=== PATIENT | female | born 1975 | race Two or more races ===

== ENCOUNTER 2024-10-31 16:25 | Inpatient (IN) | payer BC, MEDICAID ==
[~2024-10-31] VITALS: Ht 162.6 cm; Wt 82.2 kg
[2024-10-31 16:44] VITALS: PULSE 78; RESP 14; O2SAT 96
--- NOTE | 2024-10-31 16:58 | ED.PDOC ---
GI ASSESSMENT HPI Comments This is a 49-year-old lady with past medical history of diabetes, hypertension and dyslipidemia came to the hospital due to abdominal pain since 5 days. Pain Is localized at left lower abdominal pain, nonradiating, 9/10 in intensity, which worsened with taking food. She also reports of nausea. She denies fever, vomiting, chest pain, shortness of breaths or any bladder and bowel habit changes. Home meds: Metformin, losartan atorvastatin Chief Complaint: Abdominal Pain Time Seen by MD: 16:41 Reviewed Notes: Nurses Notes Allergies: Coded Allergies: NO KNOWN ALLERGIES (Unverified , 10/31/24) Information Source: Patient Mode of Arrival: Ambulatory Past Medical History Past Medical History (Other): Diabetes hypertension dyslipidemia Constitutional: denies: chills, diaphoresis, fatigue, fever, malaise, sweats, weakness, others EENTM: denies: blurred vision, double vision, ear bleeding, ear discharge, ear drainage, ear pain, ear ringing, eye pain, eye redness, hearing loss, mouth pain, mouth swelling, nasal discharge, nose bleeding, nose congestion, nose pain, photophobia, tearing, throat pain, throat swelling, voice changes, others Respiratory: denies: cough, hemoptysis, orthopnea, SOB at rest, shortness of breath, SOB with excertion, stridor, wheezing, others Cardiovascular: denies: chest pain, dizzy spells, diaphoresis, Dyspnea on exertion, edema, irregular heart beat, left arm pain, lightheadedness, palpitations, PND, syncope, others Gastrointestinal: reports: abdominal pain, nausea; denies: abdomen distended, blood streaked bowels, constipated, diarrhea, dysphagia, difficulty swallowing, hematemesis, melena, poor appetite, poor fluid intake, rectal bleeding, rectal pain, vomiting, others Genitourinary: denies: abnormal vagina bleeding, burning, dyspareunia, dysuria, flank pain, frequency, hematuria, incontinence, pain, , vagina discharge, urgency, others Neurological: denies: dizziness, fainting, headache, left sided numbness, left sided weakness, numbness, paresthesia, pre-existing deficit, right sided numbness, right sided weakness, seizure, speech problems, tingling, tremors, wea kness, others Musculoskeletal: denies: back pain, gout, joint pain, joint swelling, muscle pain, muscle stiffness, neck pain, others Integumetry: denies: bruises, change in color, change in hair/nails, dryness, l aceration, lesions, lumps, rash, wounds, others Allergic/Immunocompromised: denies: Difficulty Healing, Frequent Infections, Hives, Itching, others Hematologic/Lymphatic: denies: anemia, blood clots, easy bleeding, easy bruising, swollen glands, others Endocrine: denies: excessive hunger, excessive sweating, excessive thirst, excessive urination, flushing, intolerance to cold, intolerance to heat, unexplained weight gain, unexplained weight loss, others Psychiatric: denies: anxiety, bipolar disorder, depression, hopeless, panic disorder, schizophrenia, sleepless, suicidal, others Physical Exam General Appearance: No Apparent Distress, Normal HEENT: Normal ENT Inspection, Pharynx Normal, TMs Normal Neck: Full Range of Motion, Non-Tender, Normal, Normal Inspection Respiratory: Chest Non-Tender, Lungs Clear, No Accessory Muscle Use, No Respiratory Distress, Normal Breath Sounds Cardiovascular: No Edema, No JVD, No Murmur, No Gallop, Normal Peripheral Pulses, Regular Rate/Rhythm Breast Exam: Deferred Gastrointestinal: No Organomegaly, Non Tender, No Pulsatile Mass, Normal Bowel Sounds, RLQ, Tenderness Genitalia: Deferred Pelvic: Deferred Rectal: Deferred Extremities: No calf tenderness, Normal capillary refill, Normal inspection, Normal range of motion, Non-tender, No pedal edema Musculoskeletal : Apperance: Normal Neurologic: Alert, 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 Was a procedure done?: No GI differential Dx Differential Diagnosis: Diverticular disease, Gastroenteritis X-Ray, Labs, Meds, VS Vital Signs Date Time Temp Pulse Resp B/P (MAP) Pulse Ox O2 Delivery O2 Flow Rate FiO2 10/31/24 18:18 73 17 192/107 10/31/24 17:11 71 10/31/24 17:11 210/111 10/31/24 16:29 98.3 76 22 211/112 96 98.3 Lab Test 10/31/24 18:00 10/31/24 17:20 10/31/24 17:17 Range/Units Urine Color Colorless Yellow Urine Clarity Clear Clear Urine pH 6.5 5.0-9.0 Urine Specific [place] 1.003 1.001-1.035 Urine Protein Negative Negative Urine Ketones Negative Negative Urine Blood Negative Negative /uL Urine Nitrite Negative Negative Urine Bilirubin Negative Negative Urine Urobilinogen Normal Negative mg/dL Urine Leukocyte Esterase Negative Negative /uL Urine RBC None seen 0 - 4 /hpf Urine Microscopic WBC < 1 0-5 /HPF Urine Squamous Epithelial Cells Few <5 /hpf Urine Bacteria None seen None Seen /hpf Urine Glucose Normal Normal mg/dL Urine Opiates Screen Pending Urine Fentanyl Screen Pending Urine Barbiturates Screen Pending Urine Phencyclidine Screen Pending Urine Amphetamines Screen Pending Urine Benzodiazepines Screen Pending Urine Cocaine Screen Pending Urine Cannabinoids Screen Pending Sodium Level 141 136-145 mmol/L Potassium Level 3.2 L 3.5-5.1 mmol/L Chloride Level 104 98-107 mmol/L Carbon Dioxide Level 25 20-31 mmol/L Anion Gap 12 5-15 Blood Urea Nitrogen 11 9-23 mg/dL Creatinine 0.67 0.550-1.02 mg/dL Glomerular Filtration Rate Calc 106 >90 mL/min BUN/Creatinine Ratio 16.4 10.0-20.0 Serum Glucose 120 H 74-106 mg/dL Calcium Level 9.7 8.7-10.4 mg/dL Magnesium Level 1.8 1.6-2.6 mg/dL Total Bilirubin 1.1 H 0.2-1.0 mg/dL Aspartate Amino Transferase (AST) 24 13-40 U/L Alanine Aminotransferase (ALT) 27 7-40 U/L Alkaline Phosphatase 86 46-116 U/L Total Protein 7.2 5.7-8.2 g/dL Albumin 4.3 3.2-4.8 g/dL Plasma/Serum Blood Alcohol < 3.0 <10 mg/dL White Blood Count 8.0 4.4-10.8 10^3/uL Red Blood Count 4.74 4.0-5.20 10^6/uL Hemoglobin 14.0 12.2-16.2 g/dL Hematocrit 39.6 36.0-46.0 % Mean Corpuscular Volume 83.5 80.0-100.0 fL Mean Corpuscular Hemoglobin 29.5 28.0-32.0 pg Mean Corpuscular Hemoglobin Concent 35.3 32.0-36.0 g/dL Red Cell Distribution Width 13.2 11.8-14.3 % Platelet Count 351 140-450 10^3/uL Mean Platelet Volume 7.9 6.9-10.8 fL Neutrophils (%) (Auto) 67.7 37.0-80.0 % Lymphocytes (%) (Auto) 22.5 10.0-50.0 % Monocytes (%) (Auto) 6.6 0.0-12.0 % Eosinophils (%) (Auto) 2.6 0.0-7.0 % Basophils (%) (Auto) 0.6 0.0-2.0 % Neutrophils # (Auto) 5.4 1.6-8.6 10 ^3/uL Lymphocytes # (Auto) 1.8 0.4-5.4 10 ^3/uL Monocytes # (Auto) 0.5 0-1.3 10 ^3/uL Eosinophils # (Auto) 0.2 0-0.8 10 ^3/uL Basophils # (Auto) 0 0-0.2 10 ^3/uL Nucleated Red Blood Cells 0.1 % Current Medications Medications (Trade) Dose Ordered Sig/Scott Route Start Time Stop Time Status Last Admin Ketorolac Tromethamine (Toradol Injection) 30 mg ONCE ONCE IV 10/31/24 17:00 10/31/24 17:01 [place] 10/31/24 17:12 Pantoprazole Sodium (Protonix) 40 mg ONCE ONCE IV 10/31/24 17:00 10/31/24 17:01 [place] 10/31/24 17:11 Ondansetron HCl (Zofran) 4 mg ONCE ONCE IV 10/31/24 17:00 10/31/24 17:01 [place] 10/31/24 17:11 Sodium Chloride 1,000 ml @ 1,000 mls/hr Q1H ONCE IV 10/31/24 17:00 10/31/24 17:59 [place] 10/31/24 17:10 Amlodipine Besylate (Norvasc Tablet) 10 mg ONCE ONCE PO 10/31/24 17:00 10/31/24 17:01 [place] 10/31/24 17:11 Acetaminophen (Tylenol Tablet) 650 mg ONCE ONCE PO 10/31/24 17:00 10/31/24 17:01 DC 10/31/24 17:12 Morphine Sulfate 4 mg ONCE ONCE IV 10/31/24 18:15 10/31/24 18:16 DC 10/31/24 18:18 Ondansetron HCl (Zofran) 4 mg ONCE ONCE IV 10/31/24 18:15 10/31/24 18:16 DC 10/31/24 18:18 Time of 1ST Reevaluation: 18:55 Reevaluation 1ST: Unchanged Patient Education/Counseling: Diagnosis, Treatment, Prognosis, Need For Follow Up Family Education/Counseling: No Family Present Comments Patient came to the hospital due to abdominal pain. Patient's blood pressure was raised at 220/[address] scan performed, showed moderate amount of stool, with diverticulosis. Patient was given morphine and ketorolac. CBC and CMP checked, within normal limits. Patient was given amlodipine and lisinopril. On subsequent checkup, patient was still feeling pain and tenderness. Blood pressure was on subsequent check up was 190 Patient will be admitted for inpatient workup and management for unknown abdominal pain and possible abdominal MRI/ultrasound. SEPSIS Sepsis Screen Date sepsis recognized/suspect: Oct 31, 2024 Time Sepsis recognized/suspect: 1632 Recent Procedure: No On Antibiotic Therapy: No Respiratory Rate >20: No Heart Rate >90: No Temp<36 C (96.8 F) or >38.3 C: No SBP <90 or MAP <65 mmHG: No New Acute Mental Status Change: No Is the patient on CPAP, BIPAP,: No Physician Orders Drug Screen (10/31/24 16:50) Ct Ab Pel Wo Con-No Oral Or Iv (10/31/24 16:50) Vital Signs Date Time Temp Pulse Resp B/P (MAP) Pulse Ox O2 Delivery O2 Flow Rate FiO2 10/31/24 18:18 73 17 192/107 10/31/24 17:11 71 10/31/24 17:11 210/111 10/31/24 16:29 98.3 76 22 211/112 96 98.3 Laboratory Tests Test 10/31/24 17:17 White Blood Count 8.0 10^3/uL (4.4-10.8) Medications Medications Dose Ordered Sig/Scott Route Start Time Stop Time Status Last Admin Dose Admin Acetaminophen 650 mg ONCE ONCE PO 10/31/24 17:00 10/31/24 17:01 DC 10/31/24 17:12 Amlodipine Besylate 10 mg ONCE ONCE PO 10/31/24 17:00 10/31/24 17:01 DC 10/31/24 17:11 Ketorolac Tromethamine 30 mg ONCE ONCE IV 10/31/24 17:00 10/31/24 17:01 DC 10/31/24 17:12 Morphine Sulfate 4 mg ONCE ONCE IV 10/31/24 18:15 10/31/24 18:16 DC 10/31/24 18:18 Ondansetron HCl 4 mg ONCE ONCE IV 10/31/24 17:00 10/31/24 17:01 DC 10/31/24 17:11 Ondansetron HCl 4 mg ONCE ONCE IV 10/31/24 18:15 10/31/24 18:16 DC 10/31/24 18:18 Pantoprazole Sodium 40 mg ONCE ONCE IV 10/31/24 17:00 10/31/24 17:01 DC 10/31/24 17:11 Sodium Chloride 1,000 ml @ 1,000 mls/hr Q1H ONCE IV 10/31/24 17:00 10/31/24 17:59 DC 10/31/24 17:10 Departure 1 Departure Time of Disposition: 18:57 Impression: Primary Impression: Intractable abdominal pain Additional Impression: Hypertensive urgency Disposition: 09 ADMITTED INPATIENT Condition: Guarded Critical Care Note Critical Care Time?: Yes (45 min-critical care time only) Stability Stability form required: No Heart Score Heart Score: Heart Score Response (Comments) Value History N/A 0 EKG N/A 0 Age N/A 0 Risk Factors N/A 0 Troponin N/A 0 Total 0 TONEY FORBES Oct 31, 2024 16:58
[2024-10-31] MEDS: SODIUM CHLORIDE 0.9% 1,000 ML IV ONE (17:10)
[2024-10-31] MEDS: PANTOPRAZOLE 40 MG/10 ML VIAL INJ IV ONE (17:11)
[2024-10-31] MEDS: ONDANSETRON HCL 4 MG/2 ML VIAL IV ONE ×2 (17:11→18:18)
[2024-10-31] MEDS: KETOROLAC TROMETH 30 MG/ML 1ML VIAL IV ONE (17:12)
[2024-10-31] MEDS: ACETAMINOPHEN 325 MG TAB PO ONE (17:12)
[2024-10-31 17:33] LABS: Hematocrit 39.6 % (36.0-46.0); Hemoglobin 14.0 g/dL (12.2-16.2); Mean Corpuscular Hemoglobin 29.5 pg (28.0-32.0); Mean Corpuscular Volume 83.5 fL (80.0-100.0); Nucleated Red Blood Cells % 0.1 %
[2024-10-31 17:58] LABS: Alanine Aminotransferase 27 U/L (7-40); Albumin 4.3 g/dL (3.2-4.8); Alkaline Phosphatase 86 U/L (46-116); Anion Gap 12 (5-15); BUN/Creatinine Ratio 16.4 (10.0-20.0); Blood Urea Nitrogen 11 mg/dL (9-23); Calcium 9.7 mg/dL (8.7-10.4); Carbon Dioxide 25 mmol/L (20-31); Chloride 104 mmol/L (98-107); Magnesium 1.8 mg/dL (1.6-2.6); Sodium 141 mmol/L (136-145); Total Protein 7.2 g/dL (5.7-8.2)
[2024-10-31 17:59] LABS: Bilirubin, Total 1.1 mg/dL (0.2-1.0); Glucose 120 mg/dL (74-106); Potassium 3.2 mmol/L (3.5-5.1)
--- NOTE | 2024-10-31 18:08 | ECG ---
[facility] Test Date: 2024-10-31 Test Time: 17:08:29 Pat Name: LANA SLADE Department: Room: 0223T Gender: F [employer] Supervisor: NACHO : 1975 Requested By: TONEY FORBES Order Number: [id number] Reading MD: Gerardo Barrientos Measurements Intervals [place] Rate: 71 P: 38 AK: 191 QRS: 18 QRSD: 96 T: 61 QT: 411 QTc: 447 Interpretive Statements Sinus rhythm Electronically Signed On 11-03-2024 18:48:49 PDT by Gerardo Barrientos Please click the below link to view image of tracing.
--- NOTE | 2024-10-31 18:14 | DVH ---
Indication: ab. pain Technique: CT axial images of the abdomen and pelvis are obtained without contrast. Coronal and sagit tray reformats were obtained. Radiation Dose Information: CTDI volume is 8.5 mGy. Dose-length product is 3.92 mGy*cm Comparison: CT ABD/PEL on DOS: 03/12/23 FINDINGS: There is limited interpretation of the abdomen and pelvis without administration of intravenous contr ast. Lung bases demonstrate no pleural effusion. Adrenal glands, spleen, pancreas unremarkable in shape. Liver unremarkable shape. No CT evidence fo r cholelithiasis. There is no hydronephrosis/nephrolithiasis. Stomach is partially distended. Small bowel loops are normal in caliber. Colonic diverticula. Moderate volume stool within the colon. Appendix is removed. Abdominal aortic atherosclerotic disease, tortuosity. Bladder is partially distended. No free pelvic fluid. No inguinal lymphadenopathy. No aggressive osseous process. IMPRESSION: Limited evaluation without contrast. No hydronephrosis / nephrolithiasis. No bowel obstruction. Moderate volume stool in the colon. Colonic diverticula. Other findings as described.
[2024-10-31] MEDS: MORPHINE SULFATE 4 MG/ML SYR/VIAL IV ONE (18:18)
[2024-10-31 18:44] LABS: Urine Protein, UAD Negative (Negative)
[2024-10-31 18:57] LABS: Amphetamine Screen, Urine Neg (NEGATIVE); Barbiturate Scree,Urine Neg (NEGATIVE); Benzodiazephine Screen, Urine Neg (NEGATIVE); Cannabinoid Screen, Urine Neg (NEGATIVE); Cocaine Screen, Urine Neg (NEGATIVE); Opiate Scree,Urine Neg (NEGATIVE); Phencyclidine Screen, Urine Neg (NEGATIVE)
[2024-10-31] MEDS: LISINOPRIL 20 MG TAB PO ONE (19:43)
[2024-10-31] MEDS: MAGNESIUM SULFATE 1GM/100ML 100 ML IV ONE (19:50)
[2024-10-31] MEDS ORDERED: DEXTROSE (50%) 50ML SYRG IV PRN (20:30)
[2024-10-31] MEDS ORDERED: ACETAMINOPHEN 325 MG TAB PO PRN (20:30)
[2024-10-31] MEDS: HYDROmorphone HCL 2 MG/ML VL/or syr IV ONE (20:30)
[2024-10-31] MEDS ORDERED: DOCUSATE SOD 100 MG CAP PO PRN (20:30)
[2024-10-31] MEDS ORDERED: hydrALAZINE HCL 20 MG/ML VL IV PRN (20:30)
[2024-10-31] MEDS: POTASSIUM CHLORIDE 60 MEQ, LIDOCAINE 1% (LOCAL ANESTH.) 6 ML in SODIUM CHL 0.9% 500 ML IV ONE (20:55)
--- NOTE | 2024-10-31 21:25 | DVHHP2 ---
History of Present Illness Reason for Visit: Hypertensive urgency History of Present Illness The patient is a 49-year-old female with past medical history of diabetes mellitus, dyslipidemia, and hypertension who presented to [facility] ED with complaint of abdominal pain for the past 5 days. Patient reports she has been experiencing left lower quadrant abdominal pain, radiating to her back, rating 9/10 numeric scale, associated with nausea, getting worse that prompted this visit. Patient was seen and evaluated in the ED, laboratory data shows WBC 8.0, platelets 351, sodium 141, potassium 3.2, BUN 11, creatinine 0.67, glucose 120, glucose 9.7, total bilirubin 1.1, blood pressure 194/103 trending down to 142/85, pulse 63, temperature 98.1 F, O2 saturation 99% on room air. Abdomen/pelvis CT showed no hydronephrosis/nephrolithiasis, no bowel obstruction. Please see medication orders section in the computer. On my assessment, patient denied chest pain, no headache, no dizziness, no shortness of breaths, no diarrhea, no nausea no vomiting, no fever, no chills. Patient was admitted for further evaluation and medical management. Past Medical History Diabetes mellitus, Hypertension, Dyslipidemia Past Surgical History Denies all surgeries Family History Reviewed, noncontributory to the management of this case. Past Social History The patient lives at home, denies smoking, alcohol or illicit drugs abuse. Review of Systems Constitutional: No: Fever, Chills, Sweats, Weakness, Malaise, Other Eyes: No: Pain, Vision change, Conjunctivae inflammation, Eyelid inflammation, Other, Redness ENT: No: Ear pain, Ear discharge, Nose pain, Nose discharge, Nose congestion, Mouth pain, Mouth swelling, Throat pain, Throat swelling, Other Respiratory: No: Cough, Dry, Shortness of breath, SOB with excertion, Wheezing, Hemoptysis, Pleuritic Pain, Sputum, Wheezing, Other Cardiovascular: No: Chest Pain, Palpitations, Orthopnea, Paroxysmal Noc. Dyspnea, Edema, Lt Headedness, Other Gastrointestinal: Nausea, Abdominal Pain; No: Vomiting, Diarrhea, Constipation, Melena, Hematochezia, Other Genitourinary: No Dysuria, No Frequency, No Incontinence, No Hematuria, No Retention, No Other Musculoskeletal: No: other, neck pain, shoulder pain, arm pain, back pain, hand pain, leg pain, foot pain Skin: No: Rash, Lesions, Jaundice, Bruising, Other Neurological: No: Weakness, Numbness, Incoordination, Change in speech, Confusion, Seizures, Other Allergies: Coded Allergies: NO KNOWN ALLERGIES (Unverified , 10/31/24) Medications Current Medications Medications Dose Ordered Sig/Scott Route Start Time Stop Time Status Last Admin Dose Admin Hydralazine HCl 10 mg Q6HP PRN IV 10/31/24 20:30 Pantoprazole Sodium 40 mg DAILY IV 11/01/24 10:00 Lisinopril 20 mg DAILY PO 11/01/24 10:00 Amlodipine Besylate 10 mg DAILY PO 11/01/24 10:00 Diagnostic Test (Pha) 1 strip ACHS 10/31/24 22:00 Insulin Human Regular HS SC 10/31/24 22:00 Insulin Human Regular AC SC 11/01/24 07:00 Dextrose 50 ml UD PRN IV 10/31/24 20:30 Sodium Chloride 10 ml Q8HR IV 10/31/24 22:00 Acetaminophen/ Hydrocodone Bitart 1 tab Q4HP PRN PO 10/31/24 20:30 Ondansetron HCl 4 mg Q4HP PRN IV 10/31/24 20:30 Docusate Sodium 100 mg BIDPRN PRN PO 10/31/24 20:30 Acetaminophen 650 mg Q6HP PRN PO 10/31/24 20:30 Morphine Sulfate 2 mg Q4HPRN PRN IV 10/31/24 20:30 Exam Vital Signs Vital Signs Date Time Temp Pulse Resp B/P (MAP) Pulse Ox O2 Delivery O2 Flow Rate FiO2 10/31/24 21:03 61 17 167/81 10/31/24 20:00 98.1 99 98.1 10/31/24 19:15 Room Air* 0 21 General Appearance: Alert, Oriented X3, Cooperative, No acute distress HEENT: Atraumatic, PERRLA, EOMI, Mucous membr. moist/pink Respiratory: Clear to auscultation, Normal air movement Cardiovascular: Regular rate, Normal S1, Normal S2, No murmurs Abdominal: Normal bowel sounds, Soft, No hepatospenomegaly, No masses, Other (Reports tenderness) Extremities: No clubbing, No cyanosis, No edema, Normal pulses, No tenderness/swelling Skin: No rashes, No breakdown, No significant lesion Neuro: Normal gait, Normal speech, Strength at 5/5 X4 ext, Normal tone, Sensation intact, Cranial nerves 3-12 NL, Reflexes 2+ Psych/Mental Status: Mental status NL, Mood NL Labs/Xrays Labs Test 10/31/24 18:00 10/31/24 17:20 10/31/24 17:17 Range/Units Urine Color Colorless Yellow Urine Clarity Clear Clear Urine pH 6.5 5.0-9.0 Urine Specific [place] 1.003 1.001-1.035 Urine Protein Negative Negative Urine Ketones Negative Negative Urine Blood Negative Negative /uL Urine Nitrite Negative Negative Urine Bilirubin Negative Negative Urine Urobilinogen Normal Negative mg/dL Urine Leukocyte Esterase Negative Negative /uL Urine RBC None seen 0 - 4 /hpf Urine Microscopic WBC < 1 0-5 /HPF Urine Squamous Epithelial Cells Few <5 /hpf Urine Bacteria None seen None Seen /hpf Urine Glucose Normal Normal mg/dL Urine Opiates Screen Neg NEGATIVE Urine Fentanyl Screen Neg NEGATIVE Urine Barbiturates Screen Neg NEGATIVE Urine Phencyclidine Screen Neg NEGATIVE Urine Amphetamines Screen Neg NEGATIVE Urine Benzodiazepines Screen Neg NEGATIVE Urine Cocaine Screen Neg NEGATIVE Urine Cannabinoids Screen Neg NEGATIVE Sodium Level 141 136-145 mmol/L Potassium Level 3.2 L 3.5-5.1 mmol/L Chloride Level 104 98-107 mmol/L Carbon Dioxide Level 25 20-31 mmol/L Anion Gap 12 5-15 Blood Urea Nitrogen 11 9-23 mg/dL Creatinine 0.67 0.550-1.02 mg/dL Glomerular Filtration Rate Calc 106 >90 mL/min BUN/Creatinine Ratio 16.4 10.0-20.0 Serum Glucose 120 H 74-106 mg/dL Calcium Level 9.7 8.7-10.4 mg/dL Magnesium Level 1.8 1.6-2.6 mg/dL Total Bilirubin 1.1 H 0.2-1.0 mg/dL Aspartate Amino Transferase (AST) 24 13-40 U/L Alanine Aminotransferase (ALT) 27 7-40 U/L Alkaline Phosphatase 86 46-116 U/L Total Protein 7.2 5.7-8.2 g/dL Albumin 4.3 3.2-4.8 g/dL Plasma/Serum Blood Alcohol < 3.0 <10 mg/dL White Blood Count 8.0 4.4-10.8 10^3/uL Red Blood Count 4.74 4.0-5.20 10^6/uL Hemoglobin 14.0 12.2-16.2 g/dL Hematocrit 39.6 36.0-46.0 % Mean Corpuscular Volume 83.5 80.0-100.0 fL Mean Corpuscular Hemoglobin 29.5 28.0-32.0 pg Mean Corpuscular Hemoglobin Concent 35.3 32.0-36.0 g/dL Red Cell Distribution Width 13.2 11.8-14.3 % Platelet Count 351 140-450 10^3/uL Mean Platelet Volume 7.9 6.9-10.8 fL Neutrophils (%) (Auto) 67.7 37.0-80.0 % Lymphocytes (%) (Auto) 22.5 10.0-50.0 % Monocytes (%) (Auto) 6.6 0.0-12.0 % Eosinophils (%) (Auto) 2.6 0.0-7.0 % Basophils (%) (Auto) 0.6 0.0-2.0 % Neutrophils # (Auto) 5.4 1.6-8.6 10 ^3/uL Lymphocytes # (Auto) 1.8 0.4-5.4 10 ^3/uL Monocytes # (Auto) 0.5 0-1.3 10 ^3/uL Eosinophils # (Auto) 0.2 0-0.8 10 ^3/uL Basophils # (Auto) 0 0-0.2 10 ^3/uL Nucleated Red Blood Cells 0.1 % PATIENT: LANA SLADE ACCT: [id number] UNIT: [id number] : 1975 LOC: ER ROOM / BED: / AGE / SEX: 49 / F ADM STATUS: REG ER SERVICE 1650 ORDERING PHYSICIAN: TONEY FORBES RESDIMARY PROCEDURE(s): ABPL - CT AB PEL WO CON-NO ORAL OR IV REASON: ab. pain ORDER NUMBER(s): [id number], ACCESSION NUMBER(s): [id number] Indication: ab. pain Technique: CT axial images of the abdomen and pelvis are obtained without contrast. Coronal and sagittal reformats were obtained. Radiation Dose Information: CTDI volume is 8.5 mGy. Dose-length product is 3.92 mGy*cm Comparison: CT ABD/PEL on DOS: 03/12/23 FINDINGS: There is limited interpretation of the abdomen and pelvis without administration of intravenous contrast. Lung bases demonstrate no pleural effusion. Adrenal glands, spleen, pancreas unremarkable in shape. Liver unremarkable shape. No CT evidence for cholelithiasis. There is no hydronephrosis/nephrolithiasis. Stomach is partially distended. Small bowel loops are normal in caliber. Colonic diverticula. Moderate volume stool within the colon. Appendix is removed. Abdominal aortic atherosclerotic disease, tortuosity. Bladder is partially diste nded. No free pelvic fluid. No inguinal lymphadenopathy. No aggressive osseous process. IMPRESSION: Limited evaluation without contrast. No hydronephrosis/nephrolithiasis. No bowel obstruction. Moderate volume stool in the colon. Colonic diverticula. Other findings as described. SEPSIS Sepsis Screen Date sepsis recognized/suspect: Oct 31, 2024 Time Sepsis recognized/suspect: 1914 Recent Procedure: No On Antibiotic Therapy: No Respiratory Rate >20: No Heart Rate >90: No Temp<36 C (96.8 F) or >38.3 C: No SBP <90 or MAP <65 mmHG: No New Acute Mental Status Change: No Is the patient on CPAP, BIPAP,: No Physician Orders Ct Ab Pel Wo Con-No Oral Or Iv (10/31/24 16:50) Potassium Chloride (Potassium Chloride). (10/31/24 19:00) Hydralazine Injection (Apresoline Inject (10/31/24 20:30) Pantoprazole (Protonix) (11/01/24 10:00) Lisinopril Tablet (Zestril Tablet) (11/01/24 10:00) Amlodipine Tablet (Norvasc Tablet) (11/01/24 10:00) Glucose Blood (Accu-Chek Comfort Curve T (10/31/24 22:00) Insulin R (Human) (Insulin R) (10/31/24 22:00) Insulin R (Human) (Insulin R) (11/01/24 07:00) Dextrose 50% Syringe (10/31/24 20:30) Allergies (10/31/24 20:28) Code Status (10/31/24 20:28) Sodium Chloride Lock (Saline Lock Ns) (10/31/24 22:00) Oxygen Per Hour (10/31/24 20:28) Hydrocodone-Acet 5/325mg Tab (Bath 5/32 (10/31/24 20:30) Ondansetron Hcl (Zofran) (10/31/24 20:30) Docusate Sodium Capsule (Colace Capsule) (10/31/24 20:30) Complete Blood Count (11/01/24 04:00) Comprehensive Metabolic Panel (11/01/24 04:00) Condition: Serious (10/31/24 20:28) Acetaminophen Tablet (Tylenol Tablet) (10/31/24 20:30) Clear Liq Diet (11/01/24 Breakfast) Bedrest With Bathroom Privileg (10/31/24 20:) Morphine Sulfate Injection (10/31/24 20:30) Sequential Compression Device (10/31/24 ) Gas Plant Repairer (10/31/24 ) Admit (10/31/24 21:23) Nitroglycerin Sublingual (Ntrostat Subli (10/31/24 21:30) Morphine Sulfate Injection (10/31/24 21:30) Stat Ekg For Chest Pain (10/31/24 21:23) Notify Md Of Changes From Base (10/31/24 21:23) Planer Off Bearer For 24 Hours (10/31/24 21:23) Emergency Dysrhythmia Protocol (10/31/24 21:23) Rhythm Strips Once Every Shift (10/31/24 21:23) Oxygen By Nasal Cannula (10/31/24 21:23) Vital Signs Date Time Temp Pulse Resp B/P (MAP) Pulse Ox O2 Delivery O2 Flow Rate FiO2 10/31/24 21:03 61 17 167/81 10/31/24 20:30 64 16 200/113 10/31/24 20:00 98.1 63 10 194/103 (133) 99 98.1 10/31/24 20:00 64 10/31/24 19:43 163/92 10/31/24 19:15 Room Air* 0 21 10/31/24 18:48 69 16 192/107 10/31/24 18:18 73 17 192/107 10/31/24 18:00 69 16 192/107 (135) 99 10/31/24 17:41 70 13 207/111 (143) 99 10/31/24 17:11 71 9/19/25 17:11 210/111 10/31/24 16:54 73 18 210/111 (144) 96 10/31/24 16:44 78 14 96 Room Air* 0 21 10/31/24 16:44 98.0 78 14 212/118 (149) 96 98.0 10/31/24 16:29 98.3 76 22 211/112 96 98.3 Laboratory Tests Test 10/31/24 17:17 White Blood Count 8.0 10^3/uL (4.4-10.8) Medications Medications Dose Ordered Sig/Scott Route Start Time Stop Time Status Last Admin Dose Admin Acetaminophen 650 mg ONCE ONCE PO 10/31/24 17:00 10/31/24 17:01 CO 10/31/24 17:12 650 MG Amlodipine Besylate 10 mg ONCE ONCE PO 10/31/24 17:00 10/31/24 17:01 CO 10/31/24 17:11 10 MG Hydromorphone HCl 0.5 mg ONCE ONCE IV 10/31/24 20:15 10/31/24 20:16 DC 10/31/24 20:30 0.5 MG Ketorolac Tromethamine 30 mg ONCE ONCE IV 10/31/24 17:00 10/31/24 17:01 CO 10/31/24 17:12 30 MG Lisinopril 20 mg ONCE ONCE PO 10/31/24 19:00 10/31/24 19:29 DC 10/31/24 19:43 20 MG Magnesium Sulfate/ Dextrose 100 ml @ 100 mls/hr ONCE ONCE IV 10/31/24 19:00 10/31/24 19:59 CO 10/31/24 19:50 100 MLS/HR Morphine Sulfate 4 mg ONCE ONCE IV 10/31/24 18:15 10/31/24 18:16 CO 10/31/24 18:18 4 MG Ondansetron HCl 4 mg ONCE ONCE IV 10/31/24 17:00 10/31/24 17:01 CO 10/31/24 17:11 4 MG Ondansetron HCl 4 mg ONCE ONCE IV 10/31/24 18:15 10/31/24 18:16 DC 10/31/24 18:18 4 MG Pantoprazole Sodium 40 mg ONCE ONCE IV 10/31/24 17:00 10/31/24 17:01 DC 10/31/24 17:11 40 MG Potassium Chloride 60 meq/ Potassium Chloride 6 ml/ Sodium Chloride 536 ml @ 89.333 mls/ hr ONCE ONCE IV 10/31/24 19:00 11/01/24 00:59 10/31/24 20:55 89.333 MLS/HR Sodium Chloride 1,000 ml @ 1,000 mls/hr Q1H ONCE IV 10/31/24 17:00 10/31/24 17:59 DC 10/31/24 17:10 1,000 MLS/HR Assessment/Plan Assessment/Plan Intractable abdominal pain Hypokalemia Hypertensive urgency Plan 1. Admit to telemetry unit 2. Breathing treatment 3. Pain control management 4. Management of fluids and electrolytes 5. Consultation for hospitalist 6. Diagnostic tests chest x-ray 7. DVT prophylaxis-on SCDs 8. Repeat labs CBC, CMP in a.m. 9. Continue with current medical management 10. Treatment plan discussed with patient and RN. Patient verbalized understanding. Plan discussed with: Patient, Other (RN) My Orders Orders - JIMI SMITH DNP Procedure Category Date Status Time Hydralazine Injection PHA 10/31/24 In Process (Apresoline Inject 20:30 Pantoprazole PHA 11/01/24 In Process (Protonix) 10:00 Lisinopril Tablet PHA 11/01/24 In Process (Zestril Tablet) 10:00 Amlodipine Tablet PHA 11/01/24 In Process (Norvasc Tablet) 10:00 Glucose Blood PHA 10/31/24 In Process (Accu-Chek Comfort 22:00 Insulin R (Human) PHA 10/31/24 In Process (Insulin R) 22:00 Insulin R (Human) PHA 11/01/24 In Process (Insulin R) 07:00 Dextrose 50% Syringe PHA 10/31/24 In Process 20:30 Allergies SHERRY 10/31/24 In Process 20:28 Code Status CODE 10/31/24 Transmitted 20:28 Sodium Chloride Lock PHA 10/31/24 In Process (Saline Lock Ns) 22:00 Oxygen Per Hour RT 10/31/24 Transmitted 20:28 Hydrocodone-Acet PHA 10/31/24 In Process 5/325mg Tab (Bath 20:30 Ondansetron Hcl PHA 10/31/24 In Process (Zofran) 20:30 Docusate Sodium PHA 10/31/24 In Process Capsule (Colace 20:30 Complete Blood Count LAB 11/01/24 Verified 04:00 Comprehensive LAB 11/01/24 Verified Metabolic Panel 04:00 Condition: Serious [facility] 10/31/24 In Process 20:28 Acetaminophen Tablet [facility] 10/31/24 In Process (Tylenol Tablet) 20:30 Clear Liq Diet DIET 11/01/24 Transmitted Breakfast Bedrest With Bathroom SHERRY 10/31/24 In Process Privileg 20:28 Morphine Sulfate [facility] 10/31/24 In Process Injection 20:30 Sequential [facility] 10/31/24 In Process Compression Device Admit ADMIT 10/31/24 Verified 21:23 Nitroglycerin [facility] 10/31/24 Verified Sublingual (Ntrostat 21:30 Morphine Sulfate [facility] 10/31/24 Verified Injection 21:30 Stat Ekg For Chest [facility] 10/31/24 Verified Pain 21:23 Notify Md Of Changes [facility] 10/31/24 Verified From Base 21:23 Planer Off Bearer For [facility] 10/31/24 Verified 24 Hours 21:23 Emergency Dysrhythmia [facility] 10/31/24 Verified Protocol 21:23 Rhythm Strips Once [facility] 10/31/24 Verified Every Shift 21:23 Oxygen By Nasal RT 10/31/24 Verified Cannula 21:23 Problem List: (1) Intractable abdominal pain (2) Hypokalemia (3) Hypertensive urgency Date of Service: Oct 31, 2024 Billing Provider: JIMI SMITH DNP Common Visit Codes: [id number] INP/OBS CARE (HIGH) JIMI SMITH DNP Oct 31, 2024 21:25
[2024-10-31] MEDS ORDERED: MORPHINE SULFATE INJ 2 MG/ml SYRG IV PRN (21:30)
[2024-10-31] MEDS ORDERED: NITROGLYCERIN 0.4 MG SL TAB SL PRN (21:30)
[2024-10-31] MEDS: ACCU-CHEK COMFORT CURVE STRIP VI SCH (22:10)
[2024-10-31] MEDS: SODIUM CHLOR 0.9% PF (SALINE LOCK) 10ML VIAL/SYR IV SCH (22:16)
[2024-10-31] MEDS: InsuLIN REG 1unit/0.01ml Soln (100units/ml) SC SCH (22:16)
[2024-10-31 23:28] VITALS: BP 161/91; PULSE 91; RESP 16; TEMP 98.5; O2SAT 97
[2024-10-31] MEDS: ONDANSETRON HCL 4 MG/2 ML VIAL IV PRN (23:45)
[2024-10-31] MEDS: MORPHINE SULFATE INJ 2 MG/ml SYRG IV PRN (23:49)
[2024-10-31 23:54] VITALS: BP 161/91; PULSE 75; RESP 18; TEMP 98.5; O2SAT 97
[2024-11-01] VITALS (8 sets, daily range): BP systolic 110–142; BP diastolic 61–85; PULSE 53–71; RESP 16–19; TEMP 96.7–98.4; O2SAT 95–100
[2024-11-01] MEDS ORDERED: METF-370 PO (00:16)
[2024-11-01] MEDS ORDERED: LOSA-533 PO (00:16)
[2024-11-01] MEDS ORDERED: ATOR10TA52 PO (00:16)
[2024-11-01] MEDS: InsuLIN REG 1unit/0.01ml Soln (100units/ml) SC SCH (06:32)
[2024-11-01 07:47] LABS: Hematocrit 37.5 % (36.0-46.0); Hemoglobin 12.9 g/dL (12.2-16.2); Mean Corpuscular Hemoglobin 29.2 pg (28.0-32.0); Mean Corpuscular Volume 85.1 fL (80.0-100.0); Nucleated Red Blood Cells % 0.0 %
[2024-11-01 08:18] LABS: Alanine Aminotransferase 25 U/L (7-40); Albumin 3.9 g/dL (3.2-4.8); Alkaline Phosphatase 73 U/L (46-116); Anion Gap 10 (5-15); BUN/Creatinine Ratio 14.3 (10.0-20.0); Calcium 8.7 mg/dL (8.7-10.4); Carbon Dioxide 26 mmol/L (20-31); Chloride 105 mmol/L (98-107); Potassium 4.0 mmol/L (3.5-5.1); Sodium 141 mmol/L (136-145); Total Protein 6.5 g/dL (5.7-8.2)
[2024-11-01 08:19] LABS: Bilirubin, Total 1.1 mg/dL (0.2-1.0); Blood Urea Nitrogen 8 mg/dL (9-23); Glucose 110 mg/dL (74-106)
[2024-11-01] MEDS: HYDROcodone-ACET 5/325MG TAB PO PRN (09:21)
[2024-11-01] MEDS: PANTOPRAZOLE 40 MG/10 ML VIAL INJ IV SCH (09:21)
[2024-11-01] MEDS: LISINOPRIL 20 MG TAB PO SCH (09:22)
--- NOTE | 2024-11-01 13:16 | DVHPN2 ---
Reviewed: Care Plan, H&P, Labs, Medications, Previous Orders, Radiology Changes from previous H/P or p: No Changes Eyes: No Pain, No Vision change, No Conjunctivae inflammation, No Eyelid inflammation, No Other, No Redness ENT: No Ear pain, No Ear discharge, No Nose pain, No Nose discharge, No Nose congestion, No Mouth pain, No Mouth swelling, No Throat pain, No Throat swelling, No Other Cardiovascular: No Chest Pain, No Palpitations, No Orthopnea, No Paroxysmal Noc. Dyspnea, No Edema, No Lt Headedness, No Other Respiratory: No Cough, No Dry, No Shortness of breath, No SOB with excertion, No Wheezing, No Hemoptysis, No Pleuritic Pain, No Sputum, No Other Gastrointestinal: Nausea, Abdominal Pain Genitourinary: No Dysuria, No Frequency, No Incontinence, No Hematuria, No Retention, No Other Musculoskeletal: No other, No neck pain, No shoulder pain, No arm pain, No back pain, No hand pain, No leg pain, No foot pain Skin: No Rash, No Lesions, No Jaundice, No Bruising, No Other Objective Vitals Vital Signs Date Time Temp Pulse Resp B/P (MAP) Pulse Ox O2 Delivery O2 Flow Rate FiO2 11/01/24 13:00 97.2 55 19 131/85 (100) 100 97.2 11/01/24 08:00 Room Air* 0 21 Intake/Output Intake and Output 11/01/24 07:00 Intake Total 1686 ml Output Total 350 ml Balance 1336 ml Intake Oral 150 ml IV Total 1536 ml Output Emesis 350 ml # Voids 1 Medications Current Medications Medications Dose Ordered Sig/Scott Route Start Time Stop Time Status Last Admin Dose Admin Hydralazine HCl 10 mg Q6HP PRN IV 10/31/24 20:30 Pantoprazole Sodium 40 mg DAILY IV 11/01/24 10:00 11/01/24 09:21 40 MG Lisinopril 20 mg DAILY PO 11/01/24 10:00 11/01/24 09:22 20 MG Amlodipine Besylate 10 mg DAILY PO 11/01/24 10:00 11/01/24 09:22 10 MG Diagnostic Test (Pha) 1 strip ACHS 10/31/24 22:00 10/31/24 22:10 1 STRIP Insulin Human Regular HS SC 10/31/24 22:00 10/31/24 22:16 3 UNITS Insulin Human Regular AC SC 11/01/24 07:00 Dextrose 50 ml UD PRN IV 10/31/24 20:30 Sodium Chloride 10 ml Q8HR IV 10/31/24 22:00 11/01/24 13:03 10 ML Acetaminophen/ Hydrocodone Bitart 1 tab Q4HP PRN PO 10/31/24 20:30 11/01/24 09:21 1 TAB Ondansetron HCl 4 mg Q4HP PRN IV 10/31/24 20:30 11/01/24 05:21 4 MG Docusate Sodium 100 mg BIDPRN PRN PO 10/31/24 20:30 Acetaminophen 650 mg Q6HP PRN PO 10/31/24 20:30 Morphine Sulfate 2 mg Q4HPRN PRN IV 10/31/24 20:30 11/01/24 11:34 2 MG Nitroglycerin 0.4 mg Q5MINP PRN SL 10/31/24 21:30 Morphine Sulfate 2 mg Q30M PRN IV 10/31/24 21:30 Laboratory Results Laboratory Tests 11/01/24 07:14 11/01/24 07:17 Chemistry Test 10/31/24 17:20 11/01/24 07:14 Albumin 4.3 g/dL (3.2-4.8) 3.9 g/dL (3.2-4.8) Calcium Level 9.7 mg/dL (8.7-10.4) 8.7 mg/dL (8.7-10.4) Magnesium Level 1.8 mg/dL (1.6-2.6) Total Protein 7.2 g/dL (5.7-8.2) 6.5 g/dL (5.7-8.2) LFT Test 10/31/24 17:20 11/01/24 07:14 Alanine Aminotransferase (ALT) 27 U/L (7-40) 25 U/L (7-40) Alkaline Phosphatase 86 U/L (46-116) 73 U/L (46-116) Aspartate Amino Transferase (AST) 24 U/L (13-40) 22 U/L (13-40) Total Bilirubin 1.1 mg/dL (0.2-1.0) H 1.1 mg/dL (0.2-1.0) H Urinalysis Test 10/31/24 18:00 Urine Color Colorless (Yellow) Urine Clarity Clear (Clear) Urine pH 6.5 (5.0-9.0) Urine Specific [place] 1.003 (1.001-1.035) Urine Protein Negative (Negative) Urine Ketones Negative (Negative) Urine Blood Negative /uL (Negative) Urine Nitrite Negative (Negative) Urine Bilirubin Negative (Negative) Urine Urobilinogen Normal mg/dL (Negative) Urine Leukocyte Esterase Negative /uL (Negative) Urine RBC None seen /hpf (0 - 4) Urine Microscopic WBC < 1 /HPF (0-5) Urine Squamous Epithelial Cells Few /hpf (<5) Urine Bacteria None seen /hpf (None Seen) Urine Glucose Normal mg/dL (Normal) Labs and/or images reviewed: Labs reviewed by me, Image(s) reviewed by me Assessment/Plan Assessment/Plan Left lower quadrant abdominal pain consult for GI Dr. Thomas Hypertensive urgency Hypokalemia Acute dehydration RN Deidre at bedside CT abdomen pelvis without contrast negative Time spent 48 minutes Plan discussed with: Patient My Orders Orders - PRAKASH WALLACE MD Procedure Category Date Status Time * [facility] [employer] Worker CONS 11/01/24 Verified 13:10 Date of Service: Nov 01, 2024 Billing Provider: PRAKASH WALLACE MD Common Visit Codes: [id number] INP/OBS CARE(HIGH) PRAKASH WALLACE MD Nov 01, 2024 13:16
[2024-11-02] VITALS (8 sets, daily range): BP systolic 115–158; BP diastolic 75–93; PULSE 54–74; RESP 16–18; TEMP 97.4–98.5; O2SAT 96–100
--- NOTE | 2024-11-02 09:57 | DVHPN2 ---
Reviewed: Care Plan, H&P, Labs, Medications, Previous Orders, Radiology Changes from previous H/P or p: No Changes Eyes: No Pain, No Vision change, No Conjunctivae inflammation, No Eyelid inflammation, No Other, No Redness ENT: No Ear pain, No Ear discharge, No Nose pain, No Nose discharge, No Nose congestion, No Mouth pain, No Mouth swelling, No Throat pain, No Throat swelling, No Other Cardiovascular: No Chest Pain, No Palpitations, No Orthopnea, No Paroxysmal Noc. Dyspnea, No Edema, No Lt Headedness, No Other Respiratory: No Cough, No Dry, No Shortness of breath, No SOB with excertion, No Wheezing, No Hemoptysis, No Pleuritic Pain, No Sputum, No Other Gastrointestinal: Nausea, Abdominal Pain Genitourinary: No Dysuria, No Frequency, No Incontinence, No Hematuria, No Retention, No Other Musculoskeletal: No other, No neck pain, No shoulder pain, No arm pain, No back pain, No hand pain, No leg pain, No foot pain Skin: No Rash, No Lesions, No Jaundice, No Bruising, No Other Objective Vitals Vital Signs Date Time Temp Pulse Resp B/P (MAP) Pulse Ox O2 Delivery O2 Flow Rate FiO2 11/02/24 08:53 118/79 11/02/24 06:54 50 15 11/02/24 05:00 98.1 100 98.1 11/01/24 20:00 Room Air* 0 21 Intake/Output Intake and Output 11/02/24 07:00 Intake Total 1500 ml Balance 1500 ml Intake Oral 1500 ml # Voids 2 Medications Current Medications Medications Dose Ordered Sig/Scott Route Start Time Stop Time Status Last Admin Dose Admin Hydralazine HCl 10 mg Q6HP PRN IV 10/31/24 20:30 Pantoprazole Sodium 40 mg DAILY IV 11/01/24 10:00 11/02/24 08:52 40 MG Lisinopril 20 mg DAILY PO 11/01/24 10:00 11/02/24 08:53 20 MG Amlodipine Besylate 10 mg DAILY PO 11/01/24 10:00 11/02/24 08:53 10 MG Diagnostic Test (Pha) 1 strip ACHS 10/31/24 22:00 11/02/24 06:31 1 STRIP Insulin Human Regular HS SC 10/31/24 22:00 10/31/24 22:16 3 UNITS Insulin Human Regular AC SC 11/01/24 07:00 Dextrose 50 ml UD PRN IV 10/31/24 20:30 Sodium Chloride 10 ml Q8HR IV 10/31/24 22:00 11/02/24 05:30 10 ML Acetaminophen/ Hydrocodone Bitart 1 tab Q4HP PRN PO 10/31/24 20:30 11/01/24 16:23 1 TAB Ondansetron HCl 4 mg Q4HP PRN IV 10/31/24 20:30 11/01/24 05:21 4 MG Docusate Sodium 100 mg BIDPRN PRN PO 10/31/24 20:30 Acetaminophen 650 mg Q6HP PRN PO 10/31/24 20:30 Morphine Sulfate 2 mg Q4HPRN PRN IV 10/31/24 20:30 11/02/24 06:31 2 MG Nitroglycerin 0.4 mg Q5MINP PRN SL 10/31/24 21:30 Morphine Sulfate 2 mg Q30M PRN IV 10/31/24 21:30 Laboratory Results Laboratory Tests 11/01/24 07:14 11/01/24 07:17 Urinalysis Test 10/31/24 18:00 Urine Color Colorless (Yellow) Urine Clarity Clear (Clear) Urine pH 6.5 (5.0-9.0) Urine Specific [place] 1.003 (1.001-1.035) Urine Protein Negative (Negative) Urine Ketones Negative (Negative) Urine Blood Negative /uL (Negative) Urine Nitrite Negative (Negative) Urine Bilirubin Negative (Negative) Urine Urobilinogen Normal mg/dL (Negative) Urine Leukocyte Esterase Negative /uL (Negative) Urine RBC None seen /hpf (0 - 4) Urine Microscopic WBC < 1 /HPF (0-5) Urine Squamous Epithelial Cells Few /hpf (<5) Urine Bacteria None seen /hpf (None Seen) Urine Glucose Normal mg/dL (Normal) Labs and/or images reviewed: Labs reviewed by me, Image(s) reviewed by me Assessment/Plan Assessment/Plan Left lower quadrant abdominal pain consult for GI Dr. Thomas Hypertensive urgency Hypokalemia Acute dehydration FERN Jiang at bedside CT abdomen pelvis without contrast negative Time spent 48 minutes Rule out ovarian disease: Pelvic ultrasound pending Plan discussed with: Patient My Orders Orders - PRAKASH WALLACE MD Procedure Category Date Status Time * [facility] [employer] CONS 11/01/24 Transmitted 13:10 Date of Service: Nov 02, 2024 Billing Provider: PRAKASH WALLACE MD Common Visit Codes: [id number] INP/OBS CARE(HIGH) PRAKASH WALLACE MD Nov 02, 2024 09:57
--- NOTE | 2024-11-02 10:40 | DVHINCON2 ---
Date of service: Nov 02, 2024 Referring Physician Archie Reason for Consultation Left lower quadrant pain History of Present Illness The patient is a 49-year-old female with a past medical history significant for diabetes, hypertension, hyperlipidemia, admitted with one-week history of constipation and left lower quadrant abdominal pain. Imaging studies show left lower quadrant diverticulosis but no overt diverticulitis. She also has constipation. She has no history of GI bleeding, fevers, chills, history of prior colonoscopy. GI consultation was obtained for evaluation. Past Medical History As above Past Surgical History Denies Family History: Diabetes mellitus G8 MOTHER G8 SISTER G8 SISTER G8 SISTER G8 SISTER Hypertension G8 MOTHER G8 SISTER G8 SISTER G8 SISTER G8 SISTER Social History No tobacco alcohol or recreational drug use Allergies: Coded Allergies: NO KNOWN ALLERGIES (Unverified , 10/31/24) Home Meds Reported Medications Losartan Potassium (Losartan Potassium) 25 Mg Tab, 1 TAB PO DAILY, #90 TAB 1 Refill 11/01/24 Metformin Hydrochloride (Metformin Hcl) 500 Mg Tab, 1 TAB PO BID, #60 TAB 3 Re fills 11/01/24 Atorvastatin Calcium (ATORVASTATIN CALCIUM) 10 Mg Tab, 1 TAB PO DAILY, #30 TAB 5 Refills 11/01/24 Review of Systems General: No weight changes Head and neck: No headaches dizziness visual changes or hearing loss Cardiac: No chest pain palpitations Pulmonary: No cough, wheeze, shortness of breath GI: See HPI : No dysuria, hematuria history of kidney stones Endocrine: Denies polydipsia, polyuria, heat or cold intolerance Rheumatology: No arthralgias myalgias, back pain or recent fractures Skin: No rashes bruises or pruritus Psych: No anxiety depression, or psychosis Neuro: No stroke or seizure Heme: No anemia or malignancy ID: No recent infections Vital Signs Vital Signs Date Time Temp Pulse Resp B/P (MAP) Pulse Ox O2 Delivery O2 Flow Rate FiO2 11/02/24 08:53 118/79 11/02/24 06:54 50 15 11/02/24 05:00 98.1 100 98.1 11/01/24 20:00 Room Air* 0 21 Physical Exam General: Well-developed well-nourished HEENT: NC/AT EOMI PERRLA O/P clear, no JVD or cervical lymphadenopathy, no scleral icterus Heart: Regular rate and rhythm, no murmurs rubs or gallops Lungs: Clear to auscultation bilaterally, no wheezes rales or rhonchi Abdomen: Soft, mild tenderness to palpation no distention, no organomegaly, normoactive bowel sounds Extremity: No clubbing cyanosis or edema, no rashes or bruises Neuro: Cranial nerves 2-12 grossly intact, moves all four extremities, no asterixis Labs/Diagnostic Data Labs Test 11/02/24 06:24 11/01/24 07:17 11/01/24 07:14 10/31/24 18:00 Range/Units POC Glucose 138 H 70-106 mg/dl White Blood Count 7.4 4.4-10.8 10^3/uL Red Blood Count 4.41 4.0-5.20 10^6/uL Hemoglobin 12.9 12.2-16.2 g/dL Hematocrit 37.5 36.0-46.0 % Mean Corpuscular Volume 85.1 80.0-100.0 fL Mean Corpuscular Hemoglobin 29.2 28.0-32.0 pg Mean Corpuscular Hemoglobin Concent 34.3 32.0-36.0 g/dL Red Cell Distribution Width 13.3 11.8-14.3 % Platelet Count 320 140-450 10^3/uL Mean Platelet Volume 8.0 6.9-10.8 fL Neutrophils (%) (Auto) 71.1 37.0-80.0 % Lymphocytes (%) (Auto) 20.1 10.0-50.0 % Monocytes (%) (Auto) 7.2 0.0-12.0 % Eosinophils (%) (Auto) 1.2 0.0-7.0 % Basophils (%) (Auto) 0.4 0.0-2.0 % Neutrophils # (Auto) 5.2 1.6-8.6 10 ^3/uL Lymphocytes # (Auto) 1.5 0.4-5.4 10 ^3/uL Monocytes # (Auto) 0.5 0-1.3 10 ^3/uL Eosinophils # (Auto) 0.1 0-0.8 10 ^3/uL Basophils # (Auto) 0 0-0.2 10 ^3/uL Nucleated Red Blood Cells 0.0 % Sodium Level 141 136-145 mmol/L Potassium Level 4.0 3.5-5.1 mmol/L Chloride Level 105 98-107 mmol/L Carbon Dioxide Level 26 20-31 mmol/L Anion Gap 10 5-15 Blood Urea Nitrogen 8 L 9-23 mg/dL Creatinine 0.56 0.550-1.02 mg/dL Glomerular Filtration Rate Calc 110 >90 mL/min BUN/Creatinine Ratio 14.3 10.0-20.0 Serum Glucose 110 H 74-106 mg/dL Calcium Level 8.7 8.7-10.4 mg/dL Total Bilirubin 1.1 H 0.2-1.0 mg/dL Aspartate Amino Transferase (AST) 22 13-40 U/L Alanine Aminotransferase (ALT) 25 7-40 U/L Alkaline Phosphatase 73 46-116 U/L Total Protein 6.5 5.7-8.2 g/dL Albumin 3.9 3.2-4.8 g/dL Urine Color Colorless Yellow Urine Clarity Clear Clear Urine pH 6.5 5.0-9.0 Urine Specific [place] 1.003 1.001-1.035 Urine Protein Negative Negative Urine Ketones Negative Negative Urine Blood Negative Negative /uL Urine Nitrite Negative Negative Urine Bilirubin Negative Negative Urine Urobilinogen Normal Negative mg/dL Urine Leukocyte Esterase Negative Negative /uL Urine RBC None seen 0 - 4 /hpf Urine Microscopic WBC < 1 0-5 /HPF Urine Squamous Epithelial Cells Few <5 /hpf Urine Bacteria None seen None Seen /hpf Urine Glucose Normal Normal mg/dL Urine Opiates Screen Neg NEGATIVE Urine Fentanyl Screen Neg NEGATIVE Urine Barbiturates Screen Neg NEGATIVE Urine Phencyclidine Screen Neg NEGATIVE Urine Amphetamines Screen Neg NEGATIVE Urine Benzodiazepines Screen Neg NEGATIVE Urine Cocaine Screen Neg NEGATIVE Urine Cannabinoids Screen Neg NEGATIVE Test 10/31/24 17:20 Range/Units Magnesium Level 1.8 1.6-2.6 mg/dL Plasma/Serum Blood Alcohol < 3.0 <10 mg/dL Assessment 1. Left lower quadrant pain 2. Constipation Problems(with codes): (1) Diverticulitis of intestine (2) Intractable abdominal pain (3) Hypokalemia Plan/Recommendation 1. MiraLax 2. I will be signing off and new GI nut steamer we will follow 3. Consider colonoscopy 4. Consider enemas Plan discussed with: Patient WICHO MANDEL MD Nov 02, 2024 10:40
[2024-11-02] MEDS: POLYETHYLENE GLYCOL 17 GM PWDR PO ONE (11:11)
--- NOTE | 2024-11-02 12:32 | DVH ---
INDICATION: Left lower quadrant pain rule out ovarian disease TECHNIQUE: Multiple real-time grayscale transabdominal sonographic images along with color and duplex Doppler of the uterus and ovaries were obtained. COMPARISON: CT ABD/PEL on DOS: 03/12/23 FINDINGS: The uterus measures 9.0 x 3.8 x 5.4 cm. The endometrial stripe measures 0.35 cm. The right ovary was not visualized. The left ovary measures 2.5 x 1.3 x 1.8 cm. There is a 1.1 cm cyst in the left ovary. The left ovary is somewhat heterogeneous in echotexture, question significance. Incidental note is made of nabothian cysts. Subsequent color and duplex Doppler interrogation of the ovaries demonstrated symmetric vascular flow to both ovaries, though this does not exclude the possibility of torsion due to the dual blood suppl y. IMPRESSION: 1. Left ovarian cyst measuring 1.1 cm. 2. Right ovary not visualized. 3. Nabothian cysts.
[2024-11-03] VITALS (8 sets, daily range): BP systolic 111–143; BP diastolic 70–91; PULSE 54–65; RESP 16–18; TEMP 97.8–98.6; O2SAT 98–99
--- NOTE | 2024-11-03 11:05 | DVHPN2 ---
Reviewed: Care Plan, H&P, Labs, Medications, Previous Orders, Radiology Changes from previous H/P or p: No Changes Eyes: No Pain, No Vision change, No Conjunctivae inflammation, No Eyelid inflammation, No Other, No Redness ENT: No Ear pain, No Ear discharge, No Nose pain, No Nose discharge, No Nose congestion, No Mouth pain, No Mouth swelling, No Throat pain, No Throat swelling, No Other Cardiovascular: No Chest Pain, No Palpitations, No Orthopnea, No Paroxysmal Noc. Dyspnea, No Edema, No Lt Headedness, No Other Respiratory: No Cough, No Dry, No Shortness of breath, No SOB with excertion, No Wheezing, No Hemoptysis, No Pleuritic Pain, No Sputum, No Other Gastrointestinal: Nausea, Abdominal Pain Genitourinary: No Dysuria, No Frequency, No Incontinence, No Hematuria, No Retention, No Other Musculoskeletal: No other, No neck pain, No shoulder pain, No arm pain, No back pain, No hand pain, No leg pain, No foot pain Skin: No Rash, No Lesions, No Jaundice, No Bruising, No Other Objective Vitals Vital Signs Date Time Temp Pulse Resp B/P (MAP) Pulse Ox O2 Delivery O2 Flow Rate FiO2 11/03/24 09:39 119/77 11/03/24 09:00 98.6 58 18 98 98.6 11/03/24 08:00 Room Air* 0 21 Intake/Output Intake and Output 11/03/24 07:00 Intake Total 2160 ml Balance 2160 ml Intake Oral 2160 ml # Voids 5 # Bowel Movements 1 Medications Current Medications Medications Dose Ordered Sig/Scott Route Start Time Stop Time Status Last Admin Dose Admin Hydralazine HCl 10 mg Q6HP PRN IV 10/31/24 20:30 Pantoprazole Sodium 40 mg DAILY IV 11/01/24 10:00 11/03/24 09:38 40 MG Lisinopril 20 mg DAILY PO 11/01/24 10:00 11/03/24 09:39 20 MG Amlodipine Besylate 10 mg DAILY PO 11/01/24 10:00 11/03/24 09:39 10 MG Diagnostic Test (Pha) 1 strip ACHS 10/31/24 22:00 11/02/24 22:35 1 STRIP Insulin Human Regular HS SC 10/31/24 22:00 10/31/24 22:16 3 UNITS Insulin Human Regular AC SC 11/01/24 07:00 Dextrose 50 ml UD PRN IV 10/31/24 20:30 Sodium Chloride 10 ml Q8HR IV 10/31/24 22:00 11/03/24 05:49 10 ML Acetaminophen/ Hydrocodone Bitart 1 tab Q4HP PRN PO 10/31/24 20:30 11/03/24 06:24 1 TAB Ondansetron HCl 4 mg Q4HP PRN IV 10/31/24 20:30 11/01/24 05:21 4 MG Docusate Sodium 100 mg BIDPRN PRN PO 10/31/24 20:30 Acetaminophen 650 mg Q6HP PRN PO 10/31/24 20:30 Morphine Sulfate 2 mg Q4HPRN PRN IV 10/31/24 20:30 11/02/24 11:07 2 MG Nitroglycerin 0.4 mg Q5MINP PRN SL 10/31/24 21:30 Morphine Sulfate 2 mg Q30M PRN IV 10/31/24 21:30 Laboratory Results Laboratory Tests 11/01/24 07:14 11/01/24 07:17 Urinalysis Test 10/31/24 18:00 Urine Color Colorless (Yellow) Urine Clarity Clear (Clear) Urine pH 6.5 (5.0-9.0) Urine Specific [place] 1.003 (1.001-1.035) Urine Protein Negative (Negative) Urine Ketones Negative (Negative) Urine Blood Negative /uL (Negative) Urine Nitrite Negative (Negative) Urine Bilirubin Negative (Negative) Urine Urobilinogen Normal mg/dL (Negative) Urine Leukocyte Esterase Negative /uL (Negative) Urine RBC None seen /hpf (0 - 4) Urine Microscopic WBC < 1 /HPF (0-5) Urine Squamous Epithelial Cells Few /hpf (<5) Urine Bacteria None seen /hpf (None Seen) Urine Glucose Normal mg/dL (Normal) Labs and/or images reviewed: Labs reviewed by me, Image(s) reviewed by me Assessment/Plan Assessment/Plan Left lower quadrant abdominal pain consult for GI Dr. Thomas, patient is getting colonoscopy by GI Dr. Cindy Joshua Possible diverticulitis: Rocephin IV, Flagyl IV Hypertensive urgency Hypokalemia Acute dehydratio FERN Suri at bedside CT abdomen pelvis without contrast negative 1.5 cm left ovarian cyst Time spent 48 minutes Plan discussed with: Patient My Orders Orders - PRAKASH WALLACE MD Procedure Category Date Status Time Ceftriaxone Ivpb PHA 11/04/24 Verified Rocephin 09:00 Ceftriaxone Ivpb PHA 11/03/24 Verified Rocephin 11:15 Metronidazole Ivpb PHA 11/03/24 Verified Flagyl 14:00 Date of Service: Nov 03, 2024 Billing Provider: PRAKASH WALLACE MD Common Visit Codes: [id number] INP/OBS CARE(HIGH) PRAKASH WALLACE MD Nov 03, 2024 11:05
--- NOTE | 2024-11-03 14:24 | DVHPN2 ---
Progress Note Date Seen: Nov 03, 2024 Resident Creating Document: GIL DURÁN RESIDENT Medical Necessity Reason Pt with a Central, PICC or Fol: No Subjective Review of Systems Patient seen and examined at bedside Last bowel movement on Sunday11/01/2024 Continues to note left-sided abdominal pain, 6/10, constant, worsens with drinking water Objective vital signs Vital Sign Date Time Temp Pulse Resp B/P (MAP) Pulse Ox O2 Delivery O2 Flow Rate FiO2 11/03/24 13:00 98.3 56 18 112/72 (85) 98 98.3 11/03/24 08:00 Room Air* 0 21 Total Intake and Output 11/02/24 11/02/24 11/03/24 14:59 22:59 06:59 Intake Total 1660 ml 500 ml Balance 1660 ml 500 ml medications Current Medications Medications Dose Ordered Sig/Scott Route Start Time Stop Time Status Last Admin Dose Admin Hydralazine HCl 10 mg Q6HP PRN IV 10/31/24 20:30 Pantoprazole Sodium 40 mg DAILY IV 11/01/24 10:00 11/03/24 09:38 40 MG Lisinopril 20 mg DAILY PO 11/01/24 10:00 11/03/24 09:39 20 MG Amlodipine Besylate 10 mg DAILY PO 11/01/24 10:00 11/03/24 09:39 10 MG Diagnostic Test (Pha) 1 strip ACHS 10/31/24 22:00 11/03/24 12:41 1 STRIP Insulin Human Regular HS SC 10/31/24 22:00 10/31/24 22:16 3 UNITS Insulin Human Regular AC SC 11/01/24 07:00 Dextrose 50 ml UD PRN IV 10/31/24 20:30 Sodium Chloride 10 ml Q8HR IV 10/31/24 22:00 11/03/24 05:49 10 ML Acetaminophen/ Hydrocodone Bitart 1 tab Q4HP PRN PO 10/31/24 20:30 11/03/24 06:24 1 TAB Ondansetron HCl 4 mg Q4HP PRN IV 10/31/24 20:30 11/01/24 05:21 4 MG Docusate Sodium 100 mg BIDPRN PRN PO 10/31/24 20:30 Acetaminophen 650 mg Q6HP PRN PO 10/31/24 20:30 Morphine Sulfate 2 mg Q4HPRN PRN IV 10/31/24 20:30 11/02/24 11:07 2 MG Nitroglycerin 0.4 mg Q5MINP PRN SL 10/31/24 21:30 Morphine Sulfate 2 mg Q30M PRN IV 10/31/24 21:30 Ceftriaxone Sodium 50 ml @ 100 mls/hr DAILY@09 IV 11/04/24 09:00 Metronidazole 100 ml @ 100 mls/hr Q8HR IV 11/03/24 14:00 Examination General: Well-developed well-nourished HEENT: NC/AT EOMI PERRLA O/P clear, no JVD or cervical lymphadenopathy, no scleral icterus Heart: Regular rate and rhythm, no murmurs rubs or gallops Lungs: Clear to auscultation bilaterally, no wheezes rales or rhonchi Abdomen: Soft, mild tenderness to palpation no distention, no organomegaly, normoactive bowel sounds Extremity: No clubbing cyanosis or edema, no rashes or bruises Neuro: Cranial nerves 2-12 grossly intact, moves all four extremities, no asterixis laboratory and microbiology Laboratory Tests 11/01/24 07:17 11/01/24 07:14 Test 11/01/24 07:14 Range/Units Serum Glucose 110 H 74-106 mg/dL Labs and/or images reviewed: Labs reviewed by me, Image(s) reviewed by me Problem List/Assessment/Plan Problem List/Assessment/Plan Acute intractable abdominal pain, localizes to left lower quadrant Constipation Colonic diverticulosis without diverticulitis Abdominal aortic atherosclerotic disease Left ovarian cyst Plan: bowel prep clear liquid diet scheduled for colonoscopy tomorrow. Thank you so much for the opportunity to consult on your patient. GI team will follow the patient. In case of any questions or concerns please feel free to reach out. Plan discussed with Dr. Joshua Plan discussed with: Patient, Other (RN) Dietary Evaluation Review Recommendations by RD: Dietary education by RD Comments: 1) Encourage optimal PO intake 2) Advance to 60g CCHO cardiac soft diet when medically feasible 3) Refer to outpatient RD/CDCES for weight management 4) Follow-up with gastroenterology and cardiology 5) Continue to monitor I&O, labs, and skin integrity Expected Outcomes/Goals: 1) appetite and labs to improve 2) GI symptoms to resolve 3) diet to advance 4) gradual wt loss 5) f/u in 3-5 days GIL DURÁN RESIDENT Nov 03, 2024 14:24
[2024-11-03 16:48] LABS: Hepatitis B Surface Antigen Negative (Negative)
[2024-11-03 17:13] LABS: Hepatitis C Antibody Negative (Negative)
[2024-11-03] MEDS: GOLYTELY 4L KIT PO ONE (19:00)
[2024-11-04] VITALS (10 sets, daily range): BP systolic 129–153; BP diastolic 77–93; PULSE 56–77; RESP 12–18; TEMP 97.7–98.5; O2SAT 94–97
[2024-11-04] MEDS: GOLYTELY 4L KIT PO ONE (05:24)
[2024-11-04] MEDS: MAGNESIUM CITRATE SOLUTION 300 ML BTL PO ONE (05:24)
--- NOTE | 2024-11-04 05:31 | DVH ---
CHEST RADIOGRAPH Indication: procedure 11/04 Technique: Single frontal view of the chest was obtained COMPARISON: XR CHEST 1 VIEW on DOS: 03/12/23 FINDINGS: Lines and Tubes: None Lungs: Clear Pleura: No effusion. No pneumothorax. Cardiomediastinal contours: Unremarkable Bones: Unremarkable IMPRESSION: No acute disease.
[2024-11-04 08:30] LABS: INR 1.14 (0.9-1.15); Partial Thromboplastin Time 29.3 SEC (24.5-34.5); Prothrombin Time 11.9 sec (9.3-11.8)
--- NOTE | 2024-11-04 09:39 | DVHPN2 ---
Reviewed: Care Plan, H&P, Labs, Medications, Previous Orders, Radiology Changes from previous H/P or p: No Changes Eyes: No Pain, No Vision change, No Conjunctivae inflammation, No Eyelid inflammation, No Other, No Redness ENT: No Ear pain, No Ear discharge, No Nose pain, No Nose discharge, No Nose congestion, No Mouth pain, No Mouth swelling, No Throat pain, No Throat swelling, No Other Cardiovascular: No Chest Pain, No Palpitations, No Orthopnea, No Paroxysmal Noc. Dyspnea, No Edema, No Lt Headedness, No Other Respiratory: No Cough, No Dry, No Shortness of breath, No SOB with excertion, No Wheezing, No Hemoptysis, No Pleuritic Pain, No Sputum, No Other Gastrointestinal: Nausea, Abdominal Pain Genitourinary: No Dysuria, No Frequency, No Incontinence, No Hematuria, No Retention, No Other Musculoskeletal: No other, No neck pain, No shoulder pain, No arm pain, No back pain, No hand pain, No leg pain, No foot pain Skin: No Rash, No Lesions, No Jaundice, No Bruising, No Other Objective Vitals Vital Signs Date Time Temp Pulse Resp B/P (MAP) Pulse Ox O2 Delivery O2 Flow Rate FiO2 11/04/24 08:55 143/93 11/04/24 08:00 Room Air* 0 21 11/04/24 05:47 60 15 11/04/24 05:00 98.4 97 98.4 Intake/Output Intake and Output 11/04/24 07:00 Intake Total 5750 ml Balance 5750 ml Intake Oral 5400 ml IV Total 350 ml # Voids 16 # Bowel Movements 13 Medications Current Medications Medications Dose Ordered Sig/Scott Route Start Time Stop Time Status Last Admin Dose Admin Hydralazine HCl 10 mg Q6HP PRN IV 10/31/24 20:30 Pantoprazole Sodium 40 mg DAILY IV 11/01/24 10:00 11/04/24 08:53 40 MG Lisinopril 20 mg DAILY PO 11/01/24 10:00 11/04/24 08:55 20 MG Amlodipine Besylate 10 mg DAILY PO 11/01/24 10:00 11/04/24 08:54 10 MG Diagnostic Test (Pha) 1 strip ACHS 10/31/24 22:00 11/04/24 05:29 1 STRIP Insulin Human Regular HS SC 10/31/24 22:00 11/03/24 21:26 2 UNITS Insulin Human Regular AC SC 11/01/24 07:00 11/04/24 06:36 2 UNITS Dextrose 50 ml UD PRN IV 10/31/24 20:30 Sodium Chloride 10 ml Q8HR IV 10/31/24 22:00 11/04/24 05:29 10 ML Acetaminophen/ Hydrocodone Bitart 1 tab Q4HP PRN PO 10/31/24 20:30 11/03/24 21:18 1 TAB Ondansetron HCl 4 mg Q4HP PRN IV 10/31/24 20:30 11/01/24 05:21 4 MG Docusate Sodium 100 mg BIDPRN PRN PO 10/31/24 20:30 Acetaminophen 650 mg Q6HP PRN PO 10/31/24 20:30 Morphine Sulfate 2 mg Q4HPRN PRN IV 10/31/24 20:30 11/02/24 11:07 2 MG Nitroglycerin 0.4 mg Q5MINP PRN SL 10/31/24 21:30 Morphine Sulfate 2 mg Q30M PRN IV 10/31/24 21:30 Ceftriaxone Sodium 50 ml @ 100 mls/hr DAILY@09 IV 11/04/24 09:00 11/04/24 08:54 100 MLS/HR Metronidazole 100 ml @ 100 mls/hr Q8HR IV 11/03/24 14:00 11/04/24 05:25 100 MLS/HR Laboratory Results Laboratory Tests 11/01/24 07:14 11/01/24 07:17 Coagulation Test 11/04/24 06:47 Prothrombin Time 11.9 sec (9.3-11.8) H Prothrombin Time INR 1.14 (0.9-1.15) Activated Partial Thromboplast Time 29.3 SEC (24.5-34.5) Urinalysis Test 10/31/24 18:00 Urine Color Colorless (Yellow) Urine Clarity Clear (Clear) Urine pH 6.5 (5.0-9.0) Urine Specific [place] 1.003 (1.001-1.035) Urine Protein Negative (Negative) Urine Ketones Negative (Negative) Urine Blood Negative /uL (Negative) Urine Nitrite Negative (Negative) Urine Bilirubin Negative (Negative) Urine Urobilinogen Normal mg/dL (Negative) Urine Leukocyte Esterase Negative /uL (Negative) Urine RBC None seen /hpf (0 - 4) Urine Microscopic WBC < 1 /HPF (0-5) Urine Squamous Epithelial Cells Few /hpf (<5) Urine Bacteria None seen /hpf (None Seen) Urine Glucose Normal mg/dL (Normal) Labs and/or images reviewed: Labs reviewed by me, Image(s) reviewed by me Assessment/Plan Assessment/Plan Left lower quadrant abdominal pain consult for GI Dr. Thomas, patient is getting colonoscopy by GI Dr. Cindy Joshua today Possible diverticulitis: Rocephin IV, Flagyl IV Hypertensive urgency Hypokalemia Acute dehydratio RN Suri at bedside CT abdomen pelvis without contrast negative 1.5 cm left ovarian cyst Time spent 48 minutes Plan discussed with: Patient My Orders Orders - PRAKASH WALLACE MD Procedure Category Date Status Time Ceftriaxone 1gm/50ml PHA 11/04/24 In Process (Rocephin) 09:00 Metronidazole PHA 11/03/24 In Process 500mg/100ml (Flagyl 14:00 Date of Service: Nov 04, 2024 Billing Provider: PRAKASH WALLACE MD Common Visit Codes: [id number] INP/OBS CARE(HIGH) PRAKASH WALLACE MD Nov 04, 2024 09:39
[2024-11-04] MEDS ORDERED: HYDROmorphone HCL 2 MG/ML VL/or syr IV PRN ×2 (15:00)
[2024-11-04] MEDS ORDERED: METOCLOPRAMIDE HCL 5MG/ml INJ 2ml VIAL IV PRN (15:00)
[2024-11-04] MEDS ORDERED: MORPHINE SULFATE 4 MG/ML SYR/VIAL IV PRN (15:00)
[2024-11-04] MEDS ORDERED: MORPHINE SULFATE INJ 2 MG/ml SYRG IV PRN (15:00)
[2024-11-04] MEDS ORDERED: fentaNYL CITRATE 100 MCG/2 ML VL ONE (15:08)
[2024-11-04] MEDS ORDERED: MIDAZOLAM HCL 2MG/2ML 2ml VIAL (1mg/ml) ONE (15:08)
[2024-11-04] MEDS ORDERED: SODIUM CHLORIDE LOCK 10 ML ONE (15:08)
[2024-11-04] MEDS ORDERED: PROPOFOL 10 MG/ML 20 ML IV ONE (15:08)
[2024-11-04] MEDS ORDERED: ONDANSETRON HCL 4 MG/2 ML VIAL ONE (15:08)
--- NOTE | 2024-11-04 15:39 | DVHOP2 ---
Operative Report DATE OF OPERATION: 11/04/24 PROCEDURE: Colonoscopy with cold biopsy polypectomy. PREOPERATIVE INDICATION: The patient is a 49 -year-old female undergoing colonoscopy for left lower quadrant pain POSTOPERATIVE DIAGNOSES: 1. Mild sigmoid diverticular disease with mild tortuosity of the sigmoid colon and the splenic flexure 2. Two diminutive benign-appearing rectosigmoid polyps were seen and removed by cold biopsy forceps from about 12-15 cm above the anal verge 3. 1+ internal hemorrhoids otherwise completely normal colonoscopy examination up to the cecum and terminal ileum 4. Patient had a moderate amount of black watermelon seeds present throughout the colon PROCEDURE PERFORMED BY: Mishel Joshua M.D. SCOPE: Olympus videocolonoscope. ASA CLASS: 2 PREOPERATIVE MEDICATIONS: Dr. Madan Buchanan PROCEDURE IN DETAIL: After obtaining an informed consent, the patient was placed on left lateral decubitus position. She was then sedated with the above medications. A rectal examination was performed that was normal. The colonoscope was then passed through the anus into the rectosigmoid and through the descending, transverse, and ascending colon up to the cecum with visualization of the appendiceal orifice, base of the cecum and the ileocecal valve. The colonoscope was then withdrawn. The distal 5-10 cm of the terminal ileum were normal No colitis or masses were seen. Patient had mild tortuosity of the colon at the splenic flexure and the sigmoid colon She had mild sigmoid diverticular disease. Patient had two diminutive rectosigmoid polyps at about 12-15 cm above the anal verge These were removed by cold biopsy forceps. On retroflexion patient had trace internal hemorrhoids Patient had a moderate amount of black watermelon seeds present throughout the colon The patient tolerated the procedure well without difficulty. WITHDRAWAL TIME: 7 minutes QUALITY OF THE PREP: [place] Bowel Prep score: 9. COMPLICATIONS : None SPECIMENS: Rectosigmoid polyps DISPOSITION: Transfer back to the floor Stable PLAN: 1. Repeat colonoscopy base on biopsy result likely in 5-7 years 2. Resume GI soft diet advance as tolerated 3. Increase fluid and fiber intake 4. Patient will be advised to eat C less water melena 5. Outpatient follow up with me in 4-6 weeks to review results and discuss further management MISHEL JOSHUA MD Nov 04, 2024 15:39
[2024-11-04] MEDS: KETOROLAC TROMETH 30 MG/ML 1ML VIAL IV ONE (16:43)
[2024-11-04] MEDS: ACCU-CHEK COMFORT CURVE STRIP VI ONE (16:43)
[2024-11-05 00:51] VITALS: BP 116/71; PULSE 70; RESP 17; TEMP 98.5; O2SAT 98
[2024-11-05 05:00] VITALS: BP 138/85; PULSE 60; RESP 18; TEMP 98.4; O2SAT 98
[2024-11-05 07:11] LABS: Hematocrit 40.6 % (36.0-46.0); Hemoglobin 14.0 g/dL (12.2-16.2); Mean Corpuscular Hemoglobin 29.3 pg (28.0-32.0); Mean Corpuscular Volume 84.9 fL (80.0-100.0); Nucleated Red Blood Cells % 0.1 %
[2024-11-05 07:29] LABS: Alanine Aminotransferase 29 U/L (7-40); Albumin 3.9 g/dL (3.2-4.8); Alkaline Phosphatase 81 U/L (46-116); Anion Gap 9 (5-15); BUN/Creatinine Ratio 9.9 (10.0-20.0); Calcium 9.2 mg/dL (8.7-10.4); Carbon Dioxide 28 mmol/L (20-31); Chloride 105 mmol/L (98-107); Potassium 4.0 mmol/L (3.5-5.1); Sodium 142 mmol/L (136-145); Total Protein 6.5 g/dL (5.7-8.2)
[2024-11-05 07:30] LABS: Bilirubin, Total 1.2 mg/dL (0.2-1.0)
[2024-11-05 07:38] LABS: Blood Urea Nitrogen 7 mg/dL (9-23); Glucose 112 mg/dL (74-106)
[2024-11-05 08:00] VITALS: PULSE 64
[2024-11-05 09:00] VITALS: BP 116/76; PULSE 71; RESP 18; TEMP 98.7; O2SAT 97
--- NOTE | 2024-11-05 10:23 | DVHPN2 ---
Reviewed: Care Plan, H&P, Labs, Medications, Previous Orders, Radiology Changes from previous H/P or p: No Changes Eyes: No Pain, No Vision change, No Conjunctivae inflammation, No Eyelid inflammation, No Other, No Redness ENT: No Ear pain, No Ear discharge, No Nose pain, No Nose discharge, No Nose congestion, No Mouth pain, No Mouth swelling, No Throat pain, No Throat swelling, No Other Cardiovascular: No Chest Pain, No Palpitations, No Orthopnea, No Paroxysmal Noc. Dyspnea, No Edema, No Lt Headedness, No Other Respiratory: No Cough, No Dry, No Shortness of breath, No SOB with excertion, No Wheezing, No Hemoptysis, No Pleuritic Pain, No Sputum, No Other Gastrointestinal: Nausea, Abdominal Pain Genitourinary: No Dysuria, No Frequency, No Incontinence, No Hematuria, No Retention, No Other Musculoskeletal: No other, No neck pain, No shoulder pain, No arm pain, No back pain, No hand pain, No leg pain, No foot pain Skin: No Rash, No Lesions, No Jaundice, No Bruising, No Other Objective Vitals Vital Signs Date Time Temp Pulse Resp B/P (MAP) Pulse Ox O2 Delivery O2 Flow Rate FiO2 11/05/24 09:08 116/76 11/05/24 09:00 98.7 71 18 97 98.7 11/05/24 08:00 Room Air* 0 21 Intake/Output Intake and Output 11/05/24 07:00 Intake Total 900 ml Balance 900 ml Intake Oral 550 ml IV Total 350 ml # Voids 4 Medications Current Medications Medications Dose Ordered Sig/Scott Route Start Time Stop Time Status Last Admin Dose Admin Hydralazine HCl 10 mg Q6HP PRN IV 10/31/24 20:30 Pantoprazole Sodium 40 mg DAILY IV 11/01/24 10:00 11/05/24 09:08 40 MG Lisinopril 20 mg DAILY PO 11/01/24 10:00 11/05/24 09:07 20 MG Amlodipine Besylate 10 mg DAILY PO 11/01/24 10:00 11/05/24 09:08 10 MG Diagnostic Test (Pha) 1 strip ACHS 10/31/24 22:00 11/05/24 06:15 1 STRIP Insulin Human Regular HS SC 10/31/24 22:00 11/03/24 21:26 2 UNITS Insulin Human Regular AC SC 11/01/24 07:00 11/04/24 17:29 2 UNITS Dextrose 50 ml UD PRN IV 10/31/24 20:30 Sodium Chloride 10 ml Q8HR IV 10/31/24 22:00 11/05/24 06:15 10 ML Acetaminophen/ Hydrocodone Bitart 1 tab Q4HP PRN PO 10/31/24 20:30 11/05/24 06:15 1 TAB Ondansetron HCl 4 mg Q4HP PRN IV 10/31/24 20:30 11/01/24 05:21 4 MG Docusate Sodium 100 mg BIDPRN PRN PO 10/31/24 20:30 Acetaminophen 650 mg Q6HP PRN PO 10/31/24 20:30 Morphine Sulfate 2 mg Q4HPRN PRN IV 10/31/24 20:30 11/02/24 11:07 2 MG Nitroglycerin 0.4 mg Q5MINP PRN SL 10/31/24 21:30 Morphine Sulfate 2 mg Q30M PRN IV 10/31/24 21:30 Ceftriaxone Sodium 50 ml @ 100 mls/hr DAILY@09 IV 11/04/24 09:00 11/05/24 09:08 100 MLS/HR Metronidazole 100 ml @ 100 mls/hr Q8HR IV 11/03/24 14:00 11/05/24 06:12 100 MLS/HR Laboratory Results Laboratory Tests 11/05/24 06:27 Chemistry Test 11/05/24 06:27 Albumin 3.9 g/dL (3.2-4.8) Calcium Level 9.2 mg/dL (8.7-10.4) Total Protein 6.5 g/dL (5.7-8.2) LFT Test 11/05/24 06:27 Alanine Aminotransferase (ALT) 29 U/L (7-40) Alkaline Phosphatase 81 U/L (46-116) Aspartate Amino Transferase (AST) 23 U/L (13-40) Total Bilirubin 1.2 mg/dL (0.2-1.0) H Urinalysis Test 10/31/24 18:00 Urine Color Colorless (Yellow) Urine Clarity Clear (Clear) Urine pH 6.5 (5.0-9.0) Urine Specific [place] 1.003 (1.001-1.035) Urine Protein Negative (Negative) Urine Ketones Negative (Negative) Urine Blood Negative /uL (Negative) Urine Nitrite Negative (Negative) Urine Bilirubin Negative (Negative) Urine Urobilinogen Normal mg/dL (Negative) Urine Leukocyte Esterase Negative /uL (Negative) Urine RBC None seen /hpf (0 - 4) Urine Microscopic WBC < 1 /HPF (0-5) Urine Squamous Epithelial Cells Few /hpf (<5) Urine Bacteria None seen /hpf (None Seen) Urine Glucose Normal mg/dL (Normal) Labs and/or images reviewed: Labs reviewed by me, Image(s) reviewed by me Assessment/Plan Assessment/Plan Left lower quadrant abdominal pain consult for GI Dr. Thomas, patient is getting colonoscopy by GI Dr. Cindy Joshua today Possible diverticulitis: Rocephin IV, Flagyl IV Mild sigmoid diverticular disease with 2 benign polyps removed by colonoscopy by Dr. Cindy Joshua, also has mild hemorrhoids Hypertensive urgency Hypokalemia Acute dehydratio FREN Johnson at bedside CT abdomen pelvis without contrast negative 1.5 cm left ovarian cyst Time spent 48 minutes Patient feels better and wants to go home Plan discussed with: Patient Date of Service: Nov 05, 2024 Billing Provider: PRAKASH WALLACE MD Common Visit Codes: [id number] INP/OBS CARE(HIGH) PRAKASH WALLACE MD Nov 05, 2024 10:23
--- NOTE | 2024-11-05 10:28 | DVHDS2 ---
Discharge Summary Date of Admission Oct 31, 2024 at 21:23 Date of Discharge: Nov 05, 2024 Admitting Diagnosis Abdominal pain Wounds: None Labs/Diagnostic Data: Laboratory Results Test 11/05/24 06:27 11/05/24 06:13 11/04/24 06:47 11/01/24 07:14 White Blood Count 5.7 10^3/uL (4.4-10.8) Red Blood Count 4.79 10^6/uL (4.0-5.20) Hemoglobin 14.0 g/dL (12.2-16.2) Hematocrit 40.6 % (36.0-46.0) Mean Corpuscular Volume 84.9 fL (80.0-100.0) Mean Corpuscular Hemoglobin 29.3 pg (28.0-32.0) Mean Corpuscular Hemoglobin Concent 34.5 g/dL (32.0-36.0) Red Cell Distribution Width 12.9 % (11.8-14.3) Platelet Count 335 10^3/uL (140-450) Mean Platelet Volume 7.9 fL (6.9-10.8) Neutrophils (%) (Auto) 58.6 % (37.0-80.0) Lymphocytes (%) (Auto) 29.2 % (10.0-50.0) Monocytes (%) (Auto) 7.6 % (0.0-12.0) Eosinophils (%) (Auto) 3.8 % (0.0-7.0) Basophils (%) (Auto) 0.8 % (0.0-2.0) Neutrophils # (Auto) 3.4 10 ^3/uL (1.6-8.6) Lymphocytes # (Auto) 1.7 10 ^3/uL (0.4-5.4) Monocytes # (Auto) 0.4 10 ^3/uL (0-1.3) Eosinophils # (Auto) 0.2 10 ^3/uL (0-0.8) Basophils # (Auto) 0 10 ^3/uL (0-0.2) Nucleated Red Blood Cells 0.1 % Sodium Level 142 mmol/L (136-145) Potassium Level 4.0 mmol/L (3.5-5.1) Chloride Level 105 mmol/L (98-107) Carbon Dioxide Level 28 mmol/L (20-31) Anion Gap 9 (5-15) Blood Urea Nitrogen 7 mg/dL (9-23) Creatinine 0.71 mg/dL (0.550-1.02) Glomerular Filtration Rate Calc 103 mL/min (>90) BUN/Creatinine Ratio 9.9 (10.0-20.0) Serum Glucose 112 mg/dL (74-106) Calcium Level 9.2 mg/dL (8.7-10.4) Total Bilirubin 1.2 mg/dL (0.2-1.0) Aspartate Amino Transferase (AST) 23 U/L (13-40) Alanine Aminotransferase (ALT) 29 U/L (7-40) Alkaline Phosphatase 81 U/L (46-116) Total Protein 6.5 g/dL (5.7-8.2) Albumin 3.9 g/dL (3.2-4.8) POC Glucose 115 mg/dl (70-106) Prothrombin Time 11.9 sec (9.3-11.8) Prothrombin Time INR 1.14 (0.9-1.15) Activated Partial Thromboplast Time 29.3 SEC (24.5-34.5) Hepatitis B Surface Antigen Negative (Negative) Hepatitis C Antibody Negative (Negative) Test 10/31/24 18:00 10/31/24 17:20 Urine Color Colorless (Yellow) Urine Clarity Clear (Clear) Urine pH 6.5 (5.0-9.0) Urine Specific [place] 1.003 (1.001-1.035) Urine Protein Negative (Negative) Urine Ketones Negative (Negative) Urine Blood Negative /uL (Negative) Urine Nitrite Negative (Negative) Urine Bilirubin Negative (Negative) Urine Urobilinogen Normal mg/dL (Negative) Urine Leukocyte Esterase Negative /uL (Negative) Urine RBC None seen /hpf (0 - 4) Urine Microscopic WBC < 1 /HPF (0-5) Urine Squamous Epithelial Cells Few /hpf (<5) Urine Bacteria None seen /hpf (None Seen) Urine Glucose Normal mg/dL (Normal) Urine Opiates Screen Neg (NEGATIVE) Urine Fentanyl Screen Neg (NEGATIVE) Urine Barbiturates Screen Neg (NEGATIVE) Urine Phencyclidine Screen Neg (NEGATIVE) Urine Amphetamines Screen Neg (NEGATIVE) Urine Benzodiazepines Screen Neg (NEGATIVE) Urine Cocaine Screen Neg (NEGATIVE) Urine Cannabinoids Screen Neg (NEGATIVE) Magnesium Level 1.8 mg/dL (1.6-2.6) Plasma/Serum Blood Alcohol < 3.0 mg/dL (<10) Other Laboratory Tests 11/05/24 06:27 Brief Hx & Hospital Course: 49-year-old female with a history of hypertension came in complaining of left lower quadrant abdominal pain seen by GI Dr. Thomas. Treated with the Rocephin and IV Flagyl for possible diverticulitis colonoscopy by Dr. Cindy Joshua showed mild diverticular disease with to benign polyps and mild internal hemorrhoids. Patient feels better tolerating regular rate and wants to go home. Discharged home medications transmitted to the pharmacy she will follow up with the Dr.N Joshua in two weeks for the biopsy hypertension controlled with the lisinopril and amlodipine for which prescription transmitted to the pharmacy Consults/Reason for consult GI Dr. Thomas GI Dr. Cindy Joshua Operations or Procedures CT abdomen pelvis without contrast Colonoscopy Condition at Discharge: Fair Final Diagnosis/Problems List Left lower quadrant abdominal pain consult for GI Dr. Thomas, patient is getting colonoscopy by GI Dr. Cindy Joshau today Possible diverticulitis: Rocephin IV, Flagyl IV Mild sigmoid diverticular disease with 2 benign polyps removed by colonoscopy by Dr. Cindy Joshua, also has mild hemorrhoids Hypertensive urgency Hypokalemia Acute dehydratio RN Suri at bedside CT abdomen pelvis without contrast negative 1.5 cm left ovarian cyst Discharge Disposition: Home Discharge Instruct/Medications Diet: Cardiac 2g Na,low cholest Activity: Light activity Follow Up/Referral: Follow up with the GI Dr. Cindy Joshua in two weeks for the biopsy result Medications: Transmitted to the pharmacy Scheduled Atorvastatin Calcium (Atorvastatin Calcium), 1 TAB PO DAILY, (Reported) Losartan Potassium (Losartan Potassium), 1 TAB PO DAILY, (Reported) Metformin Hydrochloride (Metformin Hcl), 1 TAB PO BID, (Reported) 35 (Time taken for discharge summary 35 minutes) Discharge Statement: "Patient was advised to return to the ER or call 911 if any headaches, dizziness, shortness of breath, chest pain, abdominal pain, bleeding, fevers, or worsening of medical condition. Patient was counseled about treatment plan, medications, possible side effects, patientverbalized understanding. All questions were answered to the best of my ability. This discharge took greater then 30 minutes in planning, reviewing documentation, counseling the patient, and discussing with other team members." ASSESSMENT ASSESSMENT Hospital Course Improved Assessment Left lower quadrant abdominal pain consult for GI Dr. Thomas, patient is getting colonoscopy by GI Dr. Cindy Joshua today Possible diverticulitis: Rocephin IV, Flagyl IV Mild sigmoid diverticular disease with 2 benign polyps removed by colonoscopy by Dr. Cindy Joshua, also has mild hemorrhoids Hypertensive urgency Hypokalemia Acute dehydratio RN Suri at bedside CT abdomen pelvis without contrast negative 1.5 cm left ovarian cyst Date of Service: Nov 05, 2024 Billing Provider: PRAKASH WALLACE MD Common Visit Codes: [id number] DISCH DAY >30min PRAKASH WALLACE MD Nov 05, 2024 10:28
[2024-11-05] MEDS ORDERED: METR-344 PO (10:37)
[2024-11-05] MEDS ORDERED: AMLO1TAB23 PO (10:37)
[2024-11-05] MEDS ORDERED: LISI20TA56 PO (10:37)
[2024-11-05] MEDS ORDERED: LEVO500T91 PO (10:37)
[2024-11-05 11:35] VITALS: BP 116/76
== END 2024-11-05 12:25 | disposition home or self-care (01) | DRG 392 ==
LOC: ER 16:25 → OVERFLOW 21:23 → TELE-CENTR 22:59
PROVIDERS: ADMIT Family Medicine; ATTEND Family Medicine
PROC: 0DBN8ZZ Excision of Sigmoid Colon, Via Natural or Artificial Opening Endoscopic (ICD-10-PCS; principal; 2024-11-04 15:15)
DX: K57.32 Diverticulitis of large intestine without perforation or abscess without bleeding (principal); E86.0 Dehydration; E87.6 Hypokalemia; I16.0 Hypertensive urgency; K59.00 Constipation, unspecified; N83.202 Unspecified ovarian cyst, left side; K64.8 Other hemorrhoids; E11.9 Type 2 diabetes mellitus without complications; E78.5 Hyperlipidemia, unspecified; I10 Essential (primary) hypertension; I70.0 Atherosclerosis of aorta; K63.5 Polyp of colon; Z83.3 Family history of diabetes mellitus; Z82.49 Family history of ischemic heart disease and other diseases of the circulatory system
CPT/HCPCS: 36415; 71045; 74176; 76830; 76856; 80053; 80307; 80320; 81001; 82962; 83735; 85025; 85610; 85730; 86803; 86850; 86900; 86901; 87340; 93005; 96361; 96374; 96375; 99291; G0378; J1815; J1885; J2003; J2250; J2405; J2470; J2704; J3490